=== PATIENT | male | born 1935 | race African-American/Black ===

== ENCOUNTER 2018-01-28 08:15 | Day surgery (SDC) | payer MEDICARE, OTHER ==
[~2018-01-28] VITALS: Ht 175.3 cm; Wt 115.7 kg
--- NOTE | ~2018-01-28 | OP ---
PATIENT NAME: NATASHA YOO MEDICAL RECORD: [id number] :35 LOCATION:[facility] ADMISSION DATE: SURGEON: LAMIN SALGUERO MD DATE OF OPERATION: 01/28/2018 REFERRING PHYSICIAN: Dr. Sesay of [place]. PREOPERATIVE DIAGNOSIS: End-stage renal disease and dependence on hemodialysis, multiple failed prior dialysis access, and unspecified thrombophilia. POSTOPERATIVE DIAGNOSIS: End-stage renal disease and dependence on hemodialysis, multiple failed prior dialysis access, and unspecified thrombophilia. OPERATION PERFORMED: Implantation of left arm brachial artery to axillary vein Artegraft, bovine carotid artery derived prosthetic AV graft. SURGEON: Lamin Salguero MD ANESTHESIA: Regional block plus general per [employer]. PREOPERATIVE NOTE: Mr. Yoo is a very nice 82-year-old -[place] male, patient actually from [place]. He has end-stage renal disease and dialyzes in [place] per Dr. Sesay. He has had multiple failed dialysis accesses and is presently catheter dependent with a right internal jugular TDC. The patient was brought to the hospital as an outpatient today and to the operating room now to see if we can make a fistula in his left upper arm, if not to implant a graft. Under anesthesia in supine position, the patient was prepped and draped in sterile manner. I applied a Vincent drain as a proximal venous tourniquet and applied topical nitroglycerin ointment. I examined the arm with duplex ultrasound and found there were really no suitable veins for an AV fistula. As the patient is 82 and has had prolonged catheter contact time already, I thought that the best solution would be another graft. I thought that a different graft, a biologic graft, might possibly last better for him and so I chose Artegraft. This is a 6-8 mm in diameter and it was approximately 50 cm long. I made an axillary incision and exposed the proximal axillary vein above the level of a previous stent, which I assume was in the venous anastomosis. I controlled the axillary vein with Silastic loops. I reopened the prior incision over the brachial artery just above the antecubital space and I exposed the old arterial to PTFE anastomosis. The artery was controlled proximally and distally with doubly looped Silastic tapes. The graft was transected just above the arterial anastomosis and I flushed the artery proximally and distally with heparinized saline. I trimmed the PTFE down to clear an area of neointimal hyperplasia and had a very short stump of PTFE on the brachial artery and there was an excellent lumen. I then used the artery graft, shortened it slightly and beveled it and anastomosed it end-to-end with running 6-0 Prolene at the arterial anastomosis. The graft was prepared and flushed and irrigated as per the company instructions prior to use and after the first anastomosis, the graft and artery were again flushed with heparinized saline. I placed the graft in a very superficial subcutaneous tunnel, which passed anteriorly and laterally to make the graft as easy to access and convenient as possible. The graft was brought back to the axilla where it was shortened. The axillary vein was opened and I found to my disappointment as I was going in above a vein valve, that I also had entered the OPERATIVE REPORT [id number] NATASHA YOO vein on top of another valve. I resected that valve cusp and flushed the vein proximally with heparinized saline. The graft was shortened and beveled and anastomosed [id number] to [id number] with running 6-0 Prolene and when the occluding clamps and loops were released and opened, excellent flow was immediately established in the new AV graft that is very easily visualized and palpated on the anterior aspect of the arm. The wounds were irrigated with saline and closed with interrupted inverted 3-0 Vicryl and running intracuticular 4-0 Monocryl. Dermabond glue, Maxorb Ag, Tegaderm, and Cavilon skin prep. The patient was then awakened and taken to the recovery room in stable condition with a good pulse, thrill, and bruit over the AV graft. Blood loss has been about 25 cc, none was replaced intraoperatively. All sponges, instruments and needles were accounted for. No drain was used. PLAN: The patient will go home today from the hospital and come back to see me in my office next week, and we will change his dressings and see how things are going at that point. I believe that his new AV graft can be accessed 2-3 weeks postop in part depending on how much swelling he may have. I will remove his original operative dressings in the office when I see him next week. He is given a prescription for #10 Ruso 5 mg hydrocodone with Tylenol. He can take 1 every 4 hours p.r.n. pain. He will resume his usual medications. His diet and activities as tolerated. I am going to prescribe Brilinta for him rather than Plavix. In the future if it proves necessary, we might also include Xarelto as an anticoagulant. TRANSINT:[id number] Voice Confirmation ID: [id number] DOCUMENT ID: [id number] CC: Dr. Shaji Sesay, [place] LAMIN SALGUERO MD at 1244 CC: DR. SHAJI SESAY [id number] DICTATION DATE: 01/28/18 1507 [employer] PRO[employer] MANAGER: 01/28/18 1634 [facility] 01/28/18 [id number] [place] [address]
[2018-01-28 08:48] LABS: BASOPHILS 0.4 % (0-2); EOSINOPHILS 1.1 % (0-7); HEMATOCRIT 37.4 % (42.0-54.0); HEMOGLOBIN 11.8 g/dL (13.5-17.5); IMMATURE GRANULOCYTES 0.6 % (0-5); LYMPHOCYTES 21.8 % (15-50); MCH 29.6 pg (26.0-34.0); MCHC 31.6 g/dL (31.0-37.0); MCV 93.7 fL (80.0-100.0); MEAN PLATELET VOLUME 12.8 fL (7.4-10.4); MONOCYTES 11.3 % (2-11); NEUTROPHILS 64.8 % (40-80); PLATELET COUNT 192 10x3/uL (130-400); RBC 3.99 10x6/uL (4.20-6.10); RDW 14.7 % (11.5-14.5)
[2018-01-28 08:56] LABS: APTT 25.5 SECONDS (22.8-39.4); INR 0.98 (0.85-1.17); PROTIME 12.6 SECONDS (11.6-15.0)
[2018-01-28 09:02] LABS: ANION GAP 18.1 mmol/L (8-16); CALCIUM 8.8 mg/dL (8.5-10.1); CARBON DIOXIDE 22.9 mmol/L (21.0-32.0); CREATININE - SERUM 9.5 mg/dL (0.6-1.3)
[2018-01-28] MEDS ORDERED: TOPROL XL25 MG PO (09:50)
[2018-01-28] MEDS ORDERED: RENVELA800 MG PO (09:51)
[2018-01-28] MEDS ORDERED: NEURONTIN 300300 MG PO (09:52)
[2018-01-28] MEDS ORDERED: GLIMEPIRIDE1 MG PO (09:54)
[2018-01-28] MEDS ORDERED: BAYER CHEWABLE81 MG PO (09:54)
[2018-01-28 10:28] VITALS: Ht 175.3 cm; Wt 115.7 kg
[2018-01-28] MEDS ORDERED: HYDROCODON-ACE1 EAC7 PO (14:45)
== END 2018-01-28 17:05 | disposition home or self-care (01) ==
LOC: D.OPS 08:15
PROVIDERS: Surgery
DX: N18.6 End stage renal disease (principal); Z99.2 Dependence on renal dialysis; Z01.812 Encounter for preprocedural laboratory examination